=== PATIENT | male | born 1975 | race Caucasian/White ===

== ENCOUNTER 2021-06-19 13:16 | Emergency (ER) | payer OTHER, SELFPAY ==
--- NOTE | ~2021-06-19 | XR_ITS ---
EXAMINATION: XR chest 2V DATE: 06/19/2021 14:24 INDICATION: RT . Hypertension. TECHNIQUE: PA and lateral views of the chest were obtained. COMPARISON: None FINDINGS: The lungs are clear with no focal airspace opacities, pulmonary edema, pleural effusion or pneumothor ax. The cardiomediastinal silhouette is normal. Mild thoracic spondylosis. IMPRESSION: 1. No acute cardiopulmonary disease. Reviewed, dictated and finalized at location A.
[2021-06-19 13:17] VITALS: BP 146/85; PULSE 96; RESP 17; TEMP 36.1; O2SAT 99
--- NOTE | 2021-06-19 13:21 | ECG_ITS ---
Measurements Intervals [place] Rate: 92 P: 39 SD: 132 QRS: -42 QRSD: 89 T: 49 QT: 342 QTc: 424 Interpretive Statements SINUS RHYTHM LEFT AXIS DEVIATION POOR R WAVE PROGRESSION, ANTERIOR LEADS BASELINE WANDER- III, V1-V3 BORDERLINE ECG Electronically Signed On 06-19-2021 13:42:24 CDT by Robb Wharton D.O.
[2021-06-19 13:49] LABS: Basophils Percent Auto 0.3 % (0.2-1.2); Eosinophils Absolute Auto 0.1 K/mm3 (0-0.3); Eosinophils Percent Auto 1.2 % (0-4.4); Hematocrit 45.2 % (42.0-52.0); Hemoglobin 15.5 g/dL (14.0-18.0); Immature Granulocyte Absolute 0.03 K/mm3 (0.00-0.031); Immature Granulocyte Percent A 0.4 % (0-0.5); Lymphocytes Absolute Auto 1.11 K/mm3 (0.9-3.2); Lymphocytes Percent Auto 14.6 % (18.3-44.2); Mean Corpuscular HGB Conc 34.3 g/dl (32-36); Mean Corpuscular Hemoglobin 31.6 pg (26-34); Mean Corpuscular Volume 92.1 fl (80-100); Mean Platelet Volume 10.1 fl (7.4-10.4); Monocytes Absolute Auto 0.4 K/mm3 (0.1-0.6); Monocytes Percent Auto 5.1 % (2.6-8.5); Neutrophils Absolute Auto 5.9 K/mm3 (1.3-6.7); Neutrophils Percent Auto 78.4 % (45.5-73.1); Platelet Count Result 195 k/mm3 (150-375); Red Blood Count 4.91 M/mm3 (4.6-6.20); Red Cell Distribution Width 13.3 % (11.5-14.5); White Blood Count 7.6 K/mm3 (4.5-10.0)
[2021-06-19 13:57] LABS: Anion Gap 13 mmol/L (8-16); Blood Urea Nitrogen 16 mg/dL (9-20); Calcium 10.1 mg/dL (8.4-10.2); Carbon Dioxide 28 mmol/L (22-30); Chloride 98 mmol/L (98-107); Estimated CRCL calculation 138 ml/min; Estimated Glomerular Filt Rate > 60; Glucose 109 mg/dL (65-110); Potassium 4.2 mmol/L (3.4-5.0); Sodium 139 mmol/L (137-145)
[2021-06-19 13:58] VITALS: BP 117/74; BP 118/82; PULSE 100; PULSE 94
[2021-06-19 13:59] VITALS: BP 116/81; PULSE 105
[2021-06-19 14:01] VITALS: BP 116/81; PULSE 95; RESP 20; O2SAT 96
--- NOTE | 2021-06-19 14:16 | ED.GENADULT ---
HPI - General Adult General Chief complaint: Recheck/Abnormal Lab/Rx Stated complaint: dont feel well/htn Time Seen by Provider: 06/19/21 13:54 Source: patient Mode of arrival: ambulatory Limitations: no limitations History of Present Illness HPI narrative: This is a 45 year old male with history of Diabetes Mellitus who presents for evaluation due to not feeling well. He states he has not felt well since last Wednesday. He reports he normally walks 8 miles per day. He walked 10 miles on and he walked 12 miles on Wednesday. He states he feels off but he is unable to explain. He denies headache, blurred vision, focal deficits . She denies chest pain, sob, nausea, vomiting or fever. 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 He denies dizziness currently. Related Data Home Medications Medication Instructions Recorded Confirmed atorvastatin 40 mg PO DAILY 06/19/21 06/19/21 lisinopril 10 mg PO DAILY 06/19/21 06/19/21 metformin 500 mg PO BID 06/19/21 06/19/21 Allergies Allergy/AdvReac Type Severity Reaction Status Date / Time No Known Allergies Allergy Verified 06/19/21 13:17 Review of Systems Review of Systems: All systems reviewed & are unremarkable except as noted in HPI and below PMFSH Past Medical History Medical History (Updated 06/19/21 @ 17:13 by Cande Sims MD) Diabetes mellitus Hypertension Surgical History Surgical History (Updated 06/19/21 @ 17:10 by Cande Sims MD) No pertinent past surgical history Social History Social History (Updated 06/19/21 @ 17:10 by Cande Sims MD) Smoking status: Never smoker Alcohol use details: occasional alcohol use Substance use: never Gender identity (if verbalized by the patient): Male Exam Const: General: no acute distress and alert Orientation/consciousness: patient oriented x3 HENMT: Head: normocephalic and atraumatic Ears: TM's normal bilaterally Face and sinus: face symmetric Mouth: Yes Normal oral and palatal mucosa present, Yes lip normal, Yes oropharynx normal and Yes moist mucous membranes Throat: uvula midline Eyes: Pupils: Equal, round and reactive pupils present EOM: EOMs intact bilaterally Resp: Effort & Inspection: normal respiratory effort, no retractions and no use of accessory muscles Auscultation: clear to auscultation bilaterally Cardio: Rate: regular rate Rhythm: regular rhythm Heart sounds: no murmurs GI: GI Palp: Yes Soft to palpation, No Tenderness to palpation present (GI) and No Guarding due to palpation present (GI) Auscultation: normal bowel sounds Skin: General skin exam: normal color Rashes: no rashes Neuro: General: patient oriented x3, moves all extremities and CN's II-XI intact bilaterally Psych: Mental Status: mental status grossly normal Affect: normal affect Course Reevaluation(s) Reevaluation #1: I reviewed labs with patient and his family. He states he feels better since being here. He denies dizziness. he was not dizzy during orthostatic blood pressures. He has not focal deficits on exam to think he needs brain imaging at this time. He has appointment with primary care provider tomorrow afternoon Date: 06/19/21 Time: 17:10 Vital Signs Vital signs: Vital Signs Temperature 96.9 F L 06/19/21 13:17 Pulse Rate 96 06/19/21 13:17 Respiratory Rate 17 06/19/21 13:17 Blood Pressure 146/85 H 06/19/21 13:17 Pulse Oximetry 99 06/19/21 13:17 Temperature 96.9 F L 06/19/21 13:17 Pulse Rate 77 06/19/21 18:09 Respiratory Rate 16 06/19/21 18:09 Blood Pressure 162/105 H 06/19/21 18:09 Pulse Oximetry 95 06/19/21 18:09 Medical Decision Making Vital Signs Vital Signs: Vital Signs Temperature 96.9 F L 06/19/21 13:17 Pulse Rate 96 06/19/21 13:17 Respiratory Rate 17 06/19/21 13:17 Blood Pressure 146/85 H 06/19/21 13:17 Pulse Oximetry 99 06/19/21 13:17 Temperature 96.9 F L 06/19/21 13:1
--- NOTE | 2021-06-19 14:22 | PC.NURSE ---
Talked to Bela in lab-added hepatic, magnesium and CK 14:22
[2021-06-19 14:31] LABS: Alanine Aminotransferase 69 U/L (4-50); Albumin Level 4.9 g/dL (3.5-5.1); Alkaline Phosphatase 58 U/L (38-126); Aspartate Amino Transferase 68 U/L (17-59); Bilirubin,Total 1.6 mg/dL (0.2-1.3); Creatine Kinase 99 U/L (55-170); Magnesium 1.8 mg/dL (1.6-2.3)
[2021-06-19] MEDS: LACTATED RINGERS 1,000 ML 999 ML IV CONT ×2 (14:33→16:38)
[2021-06-19 15:26] VITALS: BP 131/68; PULSE 85; RESP 23; O2SAT 94
[2021-06-19 16:08] LABS: Add Urine Microscopic? YES; Appearance Urine Clear (Clear); Bacteria Urine Trace /hpf; Bilirubin Urine Negative (Negative); Blood Urine Negative (Negative); Color Urine Yellow (Yellow); Glucose Urine UA Negative (Negative); Ketones Urine 1+ mg/dL (Negative); Leukocyte Esterase Ur Negative LEU/UL (Negative); Mucus Urine Rare /lpf; Nitrate Urine Negative (Negative); Protein Urine Negative (Negative); RBC Urine 0-2 /hpf (0-2); Specific Grav Ur 1.025 (1.001-1.035); Squamous Epithelial Cell Urine Rare /hpf (Few); WBC Urine 0-3 /hpf
[2021-06-19 18:09] VITALS: BP 162/105; PULSE 77; RESP 16; O2SAT 95
== END 2021-06-19 18:11 | disposition home or self-care (01) ==
PROVIDERS: Emergency Medicine; Emergency Provider General Practice
DX: R53.83 Other fatigue (principal); E86.0 Dehydration; R74.01 Elevation of levels of liver transaminase levels; E11.9 Type 2 diabetes mellitus without complications; I10 Essential (primary) hypertension; Z79.84 Long term (current) use of oral hypoglycemic drugs
CPT/HCPCS: 36415; 71046; 80048; 80076; 81001; 82550; 83735; 85025; 93005; 96360; 96361; 99284; J7120